=== PATIENT | female | born 1960 | race Hispanic/Latino ===

== ENCOUNTER 2017-06-13 20:40 | Emergency (ER) | payer MEDICARE ==
[2017-06-13] MEDS ORDERED: DEXAMETHASONE SOD PHOSPHATE 10MG/ML 1ML VIAL ONE (22:23)
[2017-06-13] MEDS ORDERED: HYDROCODONE/ACETAMINOPHEN 10/325 MG TAB ONE (22:24)
== END 2017-06-14 00:24 | disposition home or self-care (01) ==
LOC: EDH 20:40
DX: S20.211A Contusion of right front wall of thorax, initial encounter (principal); S90.32XA Contusion of left foot, initial encounter; S60.222A Contusion of left hand, initial encounter; S40.012A Contusion of left shoulder, initial encounter; W18.39XA Other fall on same level, initial encounter; Y93.89 Activity, other specified; Y92.89 Other specified places as the place of occurrence of the external cause; Y99.8 Other external cause status
CPT/HCPCS: 71045; 71100; 73030; 73130; 73630; 96372; 99284; J1100